=== PATIENT | male | born 1950 | race Caucasian/White ===

== ENCOUNTER 2023-03-30 13:27 | Observation (INO) ==
--- NOTE | 2023-03-30 15:00 | Emergency Department Note ---
Impression & Plan Cervical spinal stenosis, Lumbar spinal stenosis, Smokeless tobacco use, Hypertension ED Provider Note NAME: STEPHEN WELCH AGE: 72 SEX: M : 1950 ARRIVES VIA: Walk-In INFORMANT: [Patient][, ] ED PROVIDER(S): [David Garcia MD] CHIEF COMPLAINT: Weakness MEDICAL DECISION MAKING: Patient presents due to concern for weakness in his right upper extremity as well as his bilateral lower extremities. IV was established and blood work was obtained. MRI of the cervical spine and lumbar spine were ordered. Patient's blood work shows a normal white count H&H and platelet count. The patient's kidney function is grossly unremarkable. I did inform the family of the findings. Patient pending the results of his MRI. 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 Moderate central canal stenosis at C3-C4 with severe multilevel level neuroforaminal narrowing. The patient's lumbar MRI shows degenerative marrow at L1 L4 and L5 with a chronic L5 pars defect and a millimeter anterior listhesis. Mild to moderate central canal stenosis at L2-L3. I did speak with on-call spinal specialist Dr. Castelan stated that given the location it would be unlikely that he would operate. That being said the patient has had chronic symptoms which have gotten progressively worse and are not an acute change for the patient. Dr. Castelan stated that he was seen as a consult in the morning and they will discuss further management and care. I did speak the on-call hospital service Dr. Hanson. IV dexamethasone 10 mg ordered. Patient was admitted to the medicine service by Dr. Hanson. OBS NOTE The patient was placed in observation status at 1500 for ambulatory dysfunction, chronic right upper extremity weakness. During the time in observation, the patient was frequently reassessed and received [treatments/testing]. On Final reassessment the patient patient with ambulatory dysfunction chronic right upper extremity weakness with severe central canal stenosis of the cervical spine and moderate canal stenosis of the cervical and lumbar spine and the patient will be admitted at this time. A total observation time of 7 hours. Prior /Outside records reviewed: [none] Differential diagnosis: Cervical spine stenosis, radiculopathy, infection, dehydration, metabolic abnormality, hypo/hyperglycemia, electrolyte disturbance, anemia, as well as others were considered pathologies. Diagnostics, as interpreted by me: ECG: [none] Cardiac monitoring: An order was placed for continuous cardiac monitoring. The monitor shows a rate of 77 with sinus rhythm. Patient was placed on pulse oximetry Medical decision rules: None Imaging studies: See below HPI: Patient presents due to concern for increasing difficulty with ambula tion. The patient states that he has had some chronic neck pain since last year and had been going to the chiropractor but without significant improvement in symptoms. The patient states that he was shoveling some call in January and had a fall. [facility] of the [facility] spine and an MRI of the brain and these were reportedly unremarkable. The patient had followed up with [place] at [facility] noticed that the patient may have some compression and was referred here for further evaluation treatment and possible MRI. The patient does complain of weakness of his right upper extremity which has been chronic in nature but acutely worse since his f all. Patient did have worsening ambulatory dysfunction today to where his right leg gave out as well. Patient denies any chest pains or shortness of breath. The patient does chew tobacco but uses alcohol sparingly. Patient denies any head strike or LOC. Patient does not take blood thinners. Patient denies any bilateral incontinence. The patient has had numbness in the bilateral lower extremities. He does have occasional rating pain to his legs but does not complain of significant back pain. No specific saddle anesthesia. Patient states he has been constipated but knows when he needs to use the bathroom. PAST MEDICAL HISTORY: See Below PAST SURGICAL HISTORY: See Below SOCIAL HISTORY: See Below HOME MEDICATIONS: See Below ALLERGIES: See Below VITALS: See Below PHYSICAL EXAMINATION: GENERAL: NAD, wearing a mask, non-toxic. EYE EXAM: Normal conjunctiva. PERRL, no anisocoria and EOM's grossly intact w/o pain. NECK: Supple, no nuchal rigidity, no adenopathy, non-tender. No signs of meningismus. FROM of the neck with good chin to chest and neck extension. No stridor. LUNGS: Clear to auscultation. Normal chest wall mechanics. HEART: NSR, no MRG. ABDOMEN: Abdomen soft, non-tender, no masses, no rebound or guarding. BACK: No CVA TTP. SKIN: No rashes and no bruising. UPPER EXTREMITIES: Upper extremities are grossly normal. LOWER EXTREMITIES: Grossly normal, no edema. NEURO EXAM: A&O x3, cranial nerves II-XII grossly intact, normal speech, moves all 4 extremities. Past Med/Surg History Medical History H/O: HTN (hypertension) Surgical History No pertinent past surgical history Social History Smoking Status: Never smoker Tobacco Type: Smokeless Tobacco (Dip or Chew) Hx Alcohol Use: Yes Hx Substance Use: No current occupational status: retired Feels Safe at Home: Yes Allergies Allergies Allergy/AdvReac Type Severity Reaction Status Date / Time No Known Allergies Allergy Unverified 03/30/23 17:31 Home Meds Home Medications Medication Instructions Recorded Confirmed amlodipine 5 mg tablet 5 mg PO DAILY 03/30/23 03/30/23 aspirin 81 mg tablet,delayed 81 mg PO DAILY 03/30/23 03/30/23 release carvedilol 25 mg tablet 25 mg PO BID 03/30/23 03/30/23 cholecalciferol (vitamin D3) 125 125 mcg PO DAILY 03/30/23 03/30/23 mcg (5,000 unit) tablet (Vitamin D3) lisinopril 20 mg tablet 40 mg PO DAILY 03/30/23 03/30/23 multivitamin 1 tab PO DAILY 03/30/23 03/30/23 omeprazole 40 mg capsule,delayed 40 mg PO DAILY 03/30/23 03/30/23 release Results & Data (ED) Vital Signs Vital Signs - 24 hr 03/30/23 13:31 03/30/23 15:00 03/30/23 20:31 Temperature 36.4 C L Temperature Source Temporal Artery Scan Pulse Rate 90 83 Pulse Rate [Finger] 75 Pulse Rate from SpO2 Sensor Respiratory Rate 18 16 Respiratory Effort / Characteristics Non-Labored Non-Labored Spontaneous Respiratory Depth Normal Normal Respiratory Pattern Regular Blood Pressure 173/104 H Blood Pressure Mean 127 Pulse Oximetry 98 99 Oxygen Delivery Method Room Air Room Air Sepsis Recent Fever Within 48 Hours No Sepsis New/Unexplained Change in Mental Status No Sepsis Action Taken by Nursing No Action Required 03/30/23 19:53 03/30/23 20:00 03/30/23 20:30 Temperature Temperature Source Pulse Rate 77 76 83 Pulse Rate [Finger] Pulse Rate from SpO2 Sensor 77 76 81 Respiratory Rate 17 19 15 Respiratory Effort / Characteristics Respiratory Depth Respiratory Pattern Blood Pressure 167/91 H 145/91 H 126/103 H Blood Pressure Mean 116 109 110 Pulse Oximetry 95 94 95 Oxygen Delivery Method Room Air Room Air Room Air Sepsis Recent Fever Within 48 Hours Sepsis New/Unexplained Change in Mental Status Sepsis Action Taken by Nursing 03/30/23 21:00 03/30/23 21:01 Temperature Temperature Source Pulse Rate 84 85 Pulse Rate [Finger] Pulse Rate from SpO2 Sensor 82 94 H Respiratory Rate 18 22 Respiratory Effort / Characteristics Respiratory Depth Respiratory Pattern Blood Pressure 150/98 H Blood Pressure Mean 115 Pulse Oximetry 95 92 Oxygen Delivery Method Room Air Sepsis Recent Fever Within 48 Hours Sepsis New/Unexplained Change in Mental Status Sepsis Action Taken by Assisted Medications Current Medication List: was personally reviewed by me Laboratory Data Attestation: I reviewed the patient's lab results. 03/30/23 13:54 03/30/23 13:54 Lab Results 03/30/23 03/30/23 03/30/23 Range/Units 13:54 13:54 15:55 WBC Cancelled 8.32 RBC Cancelled 5.28 Hgb Cancelled 16.3 Hct Cancelled 45.7 MCV Cancelled 86.6 MCH Cancelled 30.9 MCHC Cancelled 35.7 RDW Std Deviation Cancelled 37.6 RDW Coeff of Rigo Cancelled 11.8 Plt Count Cancelled 209 MPV Cancelled 10.4 Immature Gran % (Auto) Cancelled 0.2 Neut % (Auto) Cancelled 64.4 Lymph % (Auto) Cancelled 22.7 Banks % (Auto) Cancelled 10.5 Eos % (Auto) Cancelled 1.7 Baso % (Auto) Cancelled 0.5 Neut # (Auto) Cancelled 5.36 Lymph # (Auto) Cancelled 1.89 Banks # (Auto) Cancelled 0.87 H Eos # (Auto) Cancelled 0.14 Baso # (Auto) Cancelled 0.04 Immature Gran # (Auto) Cancelled 0.02 Absolute Nucleated RBC Cancelled Nucleated RBC % (auto) Cancelled Neutrophils % (Manual) Cancelled Band Neutrophils % Cancelled Lymphocytes % (Manual) Cancelled Prolymphocyte % Cancelled Reactive Lymphs % (Man) Cancelled Monocytes % (Manual) Cancelled Eosinophils % (Manual) Cancelled Basophils % (Manual) Cancelled Metamyelocytes % (Man) Cancelled Myelocytes % (Man) Cancelled Promyelocytes % (Man) Cancelled Blast Cells % (Manual) Cancelled Plasma Cell % (Manual) Cancelled Other Cells % Cancelled Nucleated RBC % Cancelled Neutrophils # (Manual) Cancelled Band Neutrophils # Cancelled Total Absolute Neuts Cancelled Lymphocytes # (Manual) Cancelled Prolymphocyte # Cancelled Reactive Lymphs # Cancelled Total Abs Lymphocytes Cancelled Monocytes # (Manual) Cancelled Eosinophils # (Manual) Cancelled Basophils # (Manual) Cancelled Metamyelocytes # (Man) Cancelled Myelocytes # (Manual) Cancelled Promyelocytes # (Man) Cancelled Blast Cells # (Man) Cancelled Plasma Cell # (Manual) Cancelled Other Cells # Cancelled Nucleated RBCs # (Man) Cancelled Hypersegmented Neuts Cancelled Hyposegmented Neuts Cancelled Hypogranular Neuts Cancelled Large Granular Lymphs Cancelled # Lrg Granular Lymphs Cancelled Hairy Cells Cancelled Smudge Cells Cancelled Toxic Granulation Cancelled Toxic Vacuolation Cancelled Dohle Bodies Cancelled Jaki Rods Cancelled Platelet Estimate Cancelled Hypogranular Platelets Cancelled Giant Platelets Cancelled Platelet Satelliting Cancelled RBC Morphology Cancelled Polychromasia Cancelled Hypochromasia Cancelled Poikilocytosis Cancelled Basophilic Stippling Cancelled Anisocytosis Cancelled Microcytosis Cancelled Macrocytosis Cancelled Spherocytes Cancelled Pappenheimer Bodies Cancelled Sickle Cells Cancelled Target Cells Cancelled Tear Drop Cells Cancelled Ovalocytes Cancelled Stomatocytes Cancelled [place] Bodies Cancelled Echinocytes Cancelled Acanthocytes (Spur) Cancelled Rouleaux Cancelled RBC Agglutinates Cancelled Schistocytes Cancelled Sezary Cell Cancelled Sodium 139 (136-145) mmol/L Potassium 3.7 (3.5-5.1) mmol/L Chloride 103 (98-107) mmol/L Carbon Dioxide 28 (21-32) mmol/L Anion Gap 8 (3-11) BUN 10 (6-23) mg/dl Creatinine 0.52 L (0.6-1.4) mg/dl Est Cr Clr Drug Dosing Not Reportable Est GFR ( Amer) 122.6 ml/min Est GFR (Non-Af Amer) 105.8 ml/min BUN/Creatinine Ratio 19.2 (10-20) Glucose 109 H (70-99(Fasting)) mg/dl Calcium 9.5 (8.6-10.3) mg/dl Total Bilirubin 0.7 (0.2-1.0) mg/dl AST 15 (13-39) U/L ALT 12 (7-52) U/L Alkaline Phosphatase 54 (34-104) U/L Total Protein 7.0 (6.0-8.3) gm/dl Albumin 4.2 (3.4-5.0) gm/dl Globulin 2.8 (2.5-4.0) gm/dl Albumin/Globulin Ratio 1.5 (0.9-2) Urine Color Urine Appearance (Clear) Urine pH (4.5-7.5) Ur Specific [place] (1.000-1.030) Urine Protein (Negative) Urine Glucose (UA) (Negative) Urine Ketones (Negative) Urine Blood (Negative) Urine Nitrite (Negative) Urine Bilirubin (Negative) Urine Urobilinogen (Negative) Ur Leukocyte Esterase (Negative) SARS-CoV-2, RNA, NAAT (NEGATIVE) Blood Parasites ID Cancelled 03/30/23 03/30/23 Range/Units 19:54 20:07 WBC RBC Hgb Hct MCV MCH MCHC RDW Std Deviation RDW Coeff of Rigo Plt Count MPV Immature Gran % (Auto) Neut % (Auto) Lymph % (Auto) Banks % (Auto) Eos % (Auto) Baso % (Auto) Neut # (Auto) Lymph # (Auto) Banks # (Auto) Eos # (Auto) Baso # (Auto) Immature Gran # (Auto) Absolute Nucleated RBC Nucleated RBC % (auto) Neutrophils % (Manual) Band Neutrophils % Lymphocytes % (Manual) Prolymphocyte % Reactive Lymphs % (Man) Monocytes % (Manual) Eosinophils % (Manual) Basophils % (Manual) Metamyelocytes % (Man) Myelocytes % (Man) Promyelocytes % (Man) Blast Cells % (Manual) Plasma Cell % (Manual) Other Cells % Nucleated RBC % Neutrophils # (Manual) Band Neutrophils # Total Absolute Neuts Lymphocytes # (Manual) Prolymphocyte # Reactive Lymphs # Total Abs Lymphocytes Monocytes # (Manual) Eosinophils # (Manual) Basophils # (Manual) Metamyelocytes # (Man) Myelocytes # (Manual) Promyelocytes # (Man) Blast Cells # (Man) Plasma Cell # (Manual) Other Cells # Nucleated RBCs # (Man) Hypersegmented Neuts Hyposegmented Neuts Hypogranular Neuts Large Granular Lymphs # Lrg Granular Lymphs Hairy Cells Smudge Cells Toxic Granulation Toxic Vacuolation Dohle Bodies Jaki Rods Platelet Estimate Hypogranular Platelets Giant Platelets Platelet Satelliting RBC Morphology Polychromasia Hypochromasia Poikilocytosis Basophilic Stippling Anisocytosis Microcytosis Macrocytosis Spherocytes Pappenheimer Bodies Sickle Cells Target Cells Tear Drop Cells Ovalocytes Stomatocytes [place] Bodies Echinocytes Acanthocytes (Spur) Rouleaux RBC Agglutinates Schistocytes Sezary Cell Sodium (136-145) mmol/L Potassium (3.5-5.1) mmol/L Chloride (98-107) mmol/L Carbon Dioxide (21-32) mmol/L Anion Gap (3-11) BUN (6-23) mg/dl Creatinine (0.6-1.4) mg/dl Est Cr Clr Drug Dosing Est GFR ( Amer) ml/min Est GFR (Non-Af Amer) ml/min BUN/Creatinine Ratio (10-20) Glucose (70-99(Fasting)) mg/dl Calcium (8.6-10.3) mg/dl Total Bilirubin (0.2-1.0) mg/dl AST (13-39) U/L ALT (7-52) U/L Alkaline Phosphatase (34-104) U/L Total Protein (6.0-8.3) gm/dl Albumin (3.4-5.0) gm/dl Globulin (2.5-4.0) gm/dl Albumin/Globulin Ratio (0.9-2) Urine Color Dark Yellow Urine Appearance Clear (Clear) Urine pH 7.0 (4.5-7.5) Ur Specific [place] 1.016 (1.000-1.030) Urine Protein Negative (Negative) Urine Glucose (UA) Negative (Negative) Urine Ketones Negative (Negative) Urine Blood Negative (Negative) Urine Nitrite Negative (Negative) Urine Bilirubin Negative (Negative) Urine Urobilinogen Negative (Negative) Ur Leukocyte Esterase Negative (Negative) SARS-CoV-2, RNA, NAAT NEGATIVE (NEGATIVE) Blood Parasites ID Administered Medications Discontinued Medications Morphine Sulfate (Morphine Sulfate 4 Mg/Ml 1 Ml Carp\Vial) 4 mg IV NOW STA Stop: 03/30/23 17:33 Last Admin: 03/30/23 17:41 Dose: 4 mg Documented By: ALESSIA Imaging Data Radiologist's Impression: Cervical Spine MRI 03/30/23 15:42 MR cervical spine wo con HISTORY: 72 years-old Male RUE weakness, b/l LE amb dysfunction, necback pain acute neck pain with right upper extremity weakness COMPARISON: None TECHNIQUE: Multiplanar multisequence MRI of the cervical spine was obtained without the use of IV contrast. FINDINGS: Motion degraded exam. No gross abnormality identified on the chief accountant localizer images. The imaged posterior fossa structures are unremarkable. Normal signal of the brainstem. 1.1 cm C6 vertebral body hemangioma. No acute fracture, subluxation, endplate erosion, significant marrow or soft tissue edema. No marrow replacing process. Degenerative pannus circumferentially surrounds the dens. This results in narrowing at the craniocervical junction with AP dimension measuring 6 mm. There is a 9 mm focus of increased T2/STIR signal within the central cervical spinal cord at this level. Otherwise normal appearance of the cervical and imaged upper thoracic spinal cord. C2-C3: Severe intervertebral disc space narrowing. Circumferential disc osteophyte complex with advanced facet arthrosis. The central canal is patent. Severe bilateral foraminal narrowing, left greater than right. C3-C4: Severe intervertebral disc space narrowing. Prominent spondylitic spurring with circumferential disc osteophyte complex and large central disc protrusion measuring 1.1 x 0.6 cm in transverse and AP dimensions. Advanced facet arthrosis. AP dimension of the thecal sac measures 5.5 mm. Moderate central canal stenosis with severe bilateral foraminal narrowing. C4-C5: Severe intervertebral disc space narrowing with circumferential disc osteophyte complex and moderate facet arthrosis. Mild central canal stenosis with AP dimension of the thecal sac measuring 8 mm. Severe bilateral foraminal narrowing. C5-C6: Severe intervertebral disc space narrowing with spondylitic spurring and small circumferential disc osteophyte complex. Moderate facet arthrosis. The central canal is patent. Moderate with severe left foraminal narrowing. C6-C7. Severe intervertebral disc space narrowing noted under partial bony fusion. Spondylitic spurring with moderate facet arthrosis. The central canal is patent. Moderate to severe right with severe left neural foraminal narrowing. C7-T1: Moderate to advanced facet arthrosis. The central canal and neuroforamen are generally patent. IMPRESSION: 1. No acute fracture, subluxation or significant bone marrow edema. 2. 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 3. Moderate central canal stenosis at C3-C4. 4. Severe multilevel neural foraminal narrowing. ACT 112: Negative or not required by law. The above report was generated using voice recognition software. It may contain grammatical, syntax or spelling errors. Electronically signed by: Camilo Renae M.D. 03/30/2023 8:59 PM Lumbar Spine MRI 03/30/23 15:42 MR lumbar spine wo con CLINICAL HISTORY: 72 years-old Male with RUE weakness, b/l LE amb dysfunction, necback pain. Chronic low back pain COMPARISON: None TECHNIQUE: Multiplanar, multi sequence MRI of the lumbar spine was performed without intravenous contrast. FINDINGS: Motion degraded exam. Cerner Analyst localizer images demonstrate no gross extraspinal abnormality. Mild lumbar levoscoliosis. No acute fracture, subluxation or erosion identified. Mild to moderate marrow edema noted at L1, L4 and L5 8 mm anterolisthesis L5 on S1 with chronic bilateral L5 pars defects. Conus medullaris terminates at the L1 level. Normal signal within the imaged thoracic spinal cord. T12-L1: No central canal or neural foraminal stenosis. L1-L2: Mild to moderate vertebral disc space narrowing. Spondylitic spurring with small circumferential annular disc bulge. Ligamentum flavum thickening with severe facet arthrosis. Mild right neural foraminal narrowing. The central canal and left neural foramen are patent. L2-L3: Mild intervertebral disc space narrowing. Spondylotic spurring with right paracentral/right lateral recess disc osteophyte complex 1.2 cm transversely. There is resultant moderate narrowing of the right lateral recess. Severe facet arthrosis with trace right facet effusion. AP dimension of the thecal sac measures 8 mm. Mild to moderate central canal stenosis with mild left and [id number] right neural foraminal narrowing. L3-L4: Severe intervertebral disc space narrowing. Spondylitic spurring with small circumferential disc osteophyte complex. Ligamentum flavum thickening with advanced facet arthrosis. Mild central canal stenosis, AP dimension of the thecal sac measuring 9 mm. Moderate to severe left with mild/moderate right neural foraminal narrowing. L4-L5: Severe intervertebral disc space narrowing. Circumferential disc osteophyte complex. Ligamentum thickening with advanced facet arthrosis. Central canal is patent. There is at least mild narrowing of the lateral recesses. Severe bilateral foraminal narrowing. L5-S1: Grade 1 anterolisthesis. Moderate intervertebral disc space narrowing with spondylitic spurring and circumferential annular disc bulge with posterior disc space uncovering. Advanced facet arthrosis. Central canal is patent. Moderate right with severe left neural foraminal narrowing. IMPRESSION: 1. Motion degraded exam without acute fracture. 2. Likely degenerative marrow edema at L1, L4 and L5. 3. Chronic L5 pars defects with 8 mm anterolisthesis. 4. Mild to moderate central canal stenosis at L2-L3 with multilevel neural foraminal narrowing as above. ACT 112: Negative or not required by law. The above report was generated using voice recognition software. It may contain grammatical, syntax or spelling errors. Electronically signed by: Camilo Renae M.D. 03/30/2023 9:07 PM Discharge Plan Visit Data Chief Complaint: Fall Stated Complaint: FELL 02/01,HEAD PAIN,NO FEELING IN ARMS,DOC REF ED Provider: David Garcia Discharge Problem: Cervical spinal stenosis, Lumbar spinal stenosis, Smokeless tobacco use, Hypertension Patient Disposition: Admitted As Inpatient Forms Stand Alone Forms: My [facility] Prescriptions Prescriptions: No Action multivitamin Tablet 1 tab PO DAILY carvedilol 25 mg tablet 25 mg PO BID lisinopril 20 mg tablet 40 mg PO DAILY amlodipine 5 mg tablet 5 mg PO DAILY omeprazole 40 mg capsule,delayed release(DR/EC) 40 mg PO DAILY aspirin 81 mg Tablet,Delayed Release (Dr/Ec) 81 mg PO DAILY cholecalciferol (vitamin D3) [Vitamin D3] 125 mcg (5,000 unit) Tablet 125 mcg PO DAILY Referrals Referrals: PCP,NO [Physician] -
[2023-03-30 15:24] LABS: Albumin Level 4.2 gm/dl (3.4-5.0); Anion Gap 8 (3-11); Bilirubin,Total 0.7 mg/dl (0.2-1.0); Calcium 9.5 mg/dl (8.6-10.3); Carbon Dioxide 28 mmol/L (21-32); Chloride 103 mmol/L (98-107); Potassium 3.7 mmol/L (3.5-5.1); Sodium 139 mmol/L (136-145)
[2023-03-30 15:30] LABS: Alanine Aminotransferase 12 U/L (7-52); Albumin Globulin Ratio 1.5 (0.9-2); Alkaline Phosphatase 54 U/L (34-104); Aspartate Aminotransferase 15 U/L (13-39); BUN Creatinine Ratio 19.2 (10-20); Blood Urea Nitrogen 10 mg/dl (6-23); Est GFR (African American) 122.6 ml/min; Est GFR (Non-African American) 105.8 ml/min; Globulin 2.8 gm/dl (2.5-4.0); Glucose 109 mg/dl (70-99(Fasting))
[2023-03-30 16:11] LABS: Basophils # (auto) 0.04 K/uL (0-0.2); Basophils % (auto) 0.5 %; Eosinophils # (auto) 0.14 K/uL (0-0.50); Eosinophils % (auto) 1.7 %; Hematocrit (blood only) 45.7 % (42.0-52.0); Hemoglobin 16.3 g/dl (14.0-18.0); Immature Granulocytes # (auto) 0.02 K/uL (0.01-0.20); Immature Granulocytes % (auto) 0.2 %; Lymphocytes # (auto) 1.89 K/uL (1.2-3.4); Lymphocytes % (auto) 22.7 %; Mean Corpuscular Hemoglobin 30.9 pg (25.0-34.0); Mean Corpuscular Hgb Conc 35.7 g/dL (32.0-36.0); Mean Corpuscular Volume 86.6 fL (80.0-100.0); Mean Platelet Volume 10.4 fL (9.4-12.4); Monocytes # (auto) 0.87 K/uL (0.11-0.59); Monocytes % (auto) 10.5 %; Neutrophils # (auto) 5.36 K/uL (1.40-6.50); Neutrophils % (auto) 64.4 %; Platelet Count 209 K/uL (130-400); RDW Coefficient of Variation 11.8 % (11.5-14.5); RDW Standard Deviation 37.6 fL (36.4-46.3); Red Blood Count 5.28 M/uL (4.70-6.10); White Blood Count 8.32 K/ul (4.8-10.8)
[2023-03-30] MEDS ORDERED: MoRPHine SULFATE 4 MG/ML 1 ML CARP\\VIAL IV STA (17:32)
[2023-03-30 20:06] LABS: Appearance Urine Clear (Clear); Bilirubin Urine Negative (Negative); Blood Urine Negative (Negative); Color Urine Dark Yellow; Glucose Urine UA Negative (Negative); Ketones Urine Negative (Negative); Leukocyte Esterase Urine Negative (Negative); Nitrite Urine Negative (Negative); Protein Urine Negative (Negative); Specific Gravity Urine 1.016 (1.000-1.030); Urobilinogen Urine Negative (Negative)
--- NOTE | 2023-03-30 21:01 | Magnetic Resonance Report ---
MR cervical spine wo con HISTORY: 72 years-old Male RUE weakness, b/l LE amb dysfunction, necback pain acute neck pain with r ight upper extremity weakness COMPARISON: None TECHNIQUE: Multiplanar multisequence MRI of the cervical spine was obtained without the use of IV con trast. FINDINGS: Motion degraded exam. No gross abnormality identified on the alloy weigher localizer images. The imaged poste rior fossa structures are unremarkable. Normal signal of the brainstem. 1.1 cm C6 vertebral body sangita ngioma. No acute fracture, subluxation, endplate erosion, significant marrow or soft tissue edema. No marrow replacing process. Degenerative pannus circumferentially surrounds the dens. This results in narrowing at the craniocervical junction with AP dimension measuring 6 mm. There is a 9 mm focus of i ncreased T2/STIR signal within the central cervical spinal cord at this level. Otherwise normal appea jaime of the cervical and imaged upper thoracic spinal cord. C2-C3: Severe intervertebral disc space narrowing. Circumferential disc osteophyte complex with advan hien facet arthrosis. The central canal is patent. Severe bilateral foraminal narrowing, left greater than right. C3-C4: Severe intervertebral disc space narrowing. Prominent spondylitic spurring with circumferentia l disc osteophyte complex and large central disc protrusion measuring 1.1 x 0.6 cm in transverse and AP dimensions. Advanced facet arthrosis. AP dimension of the thecal sac measures 5.5 mm. Moderate geni tral canal stenosis with severe bilateral foraminal narrowing. C4-C5: Severe intervertebral disc space narrowing with circumferential disc osteophyte complex and mo derate facet arthrosis. Mild central canal stenosis with AP dimension of the thecal sac measuring 8 m m. Severe bilateral foraminal narrowing. C5-C6: Severe intervertebral disc space narrowing with spondylitic spurring and small circumferential disc osteophyte complex. Moderate facet arthrosis. The central canal is patent. Moderate with severe left foraminal narrowing. C6-C7. Severe intervertebral disc space narrowing noted under partial bony fusion. Spondylitic spurri ng with moderate facet arthrosis. The central canal is patent. Moderate to severe right with severe l eft neural foraminal narrowing. C7-T1: Moderate to advanced facet arthrosis. The central canal and neuroforamen are generally patent. IMPRESSION: 1. No acute fracture, subluxation or significant bone marrow edema. 2. 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 3. Moderate central canal stenosis at C3-C4. 4. Severe multilevel neural foraminal narrowing. ACT 112: Negative or not required by law. The above report was generated using voice recognition software. It may contain grammatical, syntax o r spelling errors. Electronically signed by: Camilo Renae M.D. 03/30/2023 8:59 PM
--- NOTE | 2023-03-30 21:09 | Magnetic Resonance Report ---
MR lumbar spine wo con CLINICAL HISTORY: 72 years-old Male with RUE weakness, b/l LE amb dysfunction, necback pain. Chronic low back pain COMPARISON: None TECHNIQUE: Multiplanar, multi sequence MRI of the lumbar spine was performed without intravenous cont rast. FINDINGS: Motion degraded exam. Metal Grinder localizer images demonstrate no gross extraspinal abnormality. Mild lumba r levoscoliosis. No acute fracture, subluxation or erosion identified. Mild to moderate marrow edema noted at L1, L4 and L5 8 mm anterolisthesis L5 on S1 with chronic bilateral L5 pars defects. Conus me dullaris terminates at the L1 level. Normal signal within the imaged thoracic spinal cord. T12-L1: No central canal or neural foraminal stenosis. L1-L2: Mild to moderate vertebral disc space narrowing. Spondylitic spurring with small circumferent ial annular disc bulge. Ligamentum flavum thickening with severe facet arthrosis. Mild right neural f oraminal narrowing. The central canal and left neural foramen are patent. L2-L3: Mild intervertebral disc space narrowing. Spondylotic spurring with right paracentral/right l ateral recess disc osteophyte complex 1.2 cm transversely. There is resultant moderate narrowing of t he right lateral recess. Severe facet arthrosis with trace right facet effusion. AP dimension of the thecal sac measures 8 mm. Mild to moderate central canal stenosis with mild left and ghad-[id number] right neural foraminal narrowing. L3-L4: Severe intervertebral disc space narrowing. Spondylitic spurring with small circumferential d isc osteophyte complex. Ligamentum flavum thickening with advanced facet arthrosis. Mild central dennys l stenosis, AP dimension of the thecal sac measuring 9 mm. Moderate to severe left with mild/moderate right neural foraminal narrowing. L4-L5: Severe intervertebral disc space narrowing. Circumferential disc osteophyte complex. Ligament um thickening with advanced facet arthrosis. Central canal is patent. There is at least mild narrowin g of the lateral recesses. Severe bilateral foraminal narrowing. L5-S1: Grade 1 anterolisthesis. Moderate intervertebral disc space narrowing with spondylitic spurri ng and circumferential annular disc bulge with posterior disc space uncovering. Advanced facet arthro sis. Central canal is patent. Moderate right with severe left neural foraminal narrowing. IMPRESSION: 1. Motion degraded exam without acute fracture. 2. Likely degenerative marrow edema at L1, L4 and L5. 3. Chronic L5 pars defects with 8 mm anterolisthesis. 4. Mild to moderate central canal stenosis at L2-L3 with multilevel neural foraminal narrowing as abo ve. ACT 112: Negative or not required by law. The above report was generated using voice recognition software. It may contain grammatical, syntax o r spelling errors. Electronically signed by: Camilo Renae M.D. 03/30/2023 9:07 PM
[2023-03-30] MEDS ORDERED: dexAMETHasone**PF** 10 MG/ML VIAL IV ONE (22:14)
[2023-03-30] MEDS ORDERED: carvediloL 25 MG TAB PO ONE (22:23)
[2023-03-30] MEDS ORDERED: HYDROCODONE/ACETAMOPHEN 5/325MG TAB PO PRN (22:35)
[2023-03-31] MEDS ORDERED: ACETAMINOPHEN 325 MG TAB PO PRN (01:39)
[2023-03-31] MEDS ORDERED: ONDANSETRON INJ 2 MG/ML 2 ML VIAL IV PRN (01:39)
[2023-03-31] MEDS ORDERED: HYDROmorphone INJ 0.5 MG/0.5 ML SYR IV PRN (01:39)
[2023-03-31] MEDS: NSS + 20MEQ KCL 20 MEQ/1,000 ML BAG IV SCH ×2 (02:13→15:00)
--- NOTE | 2023-03-31 04:36 | History & Physical Report ---
Date of Service March 31, 2023 The patient was seen and examined on 03/30/23 Assessment & Plan (1) Cervical spinal stenosis: (2) Lumbar spinal stenosis: (3) Smokeless tobacco use: (4) Hypertension: (5) GERD (gastroesophageal reflux disease): Plan Cervical spine and lumbar spine stenosis- Cervical symptoms are especially prominent in C1-C2 distribution, but also extend throughout MRIs performed of cervical and lumbar spine Thoracic spine likely has similar structural issues, however, was not performed this evening due to significant discomfort, and may be imaged in the a.m. ED discussion with orthopedic spine surgery Dr. Castelan We will give dexamethasone 10 mg IV in the ED now, and then 6 mg IV every 8 hours Acetaminophen 650 mg by mouth every 6 hours as needed for mild pain or fever [place] 5/325 1 every 6 hours as needed for moderate pain Dilaudid 0.25 mg IV every 3 hours as needed for severe pain NSS + KCl 20 mEq at 80 mils per hour Consult orthopedic spine surgery Dr. Castelan Hypertension-hold aspirin Continue carvedilol 25 mg p.o. twice daily, amlodipine 5 mg p.o. daily, and lisinopril 40 mg p.o. daily. GERD- Change omeprazole to pantoprazole per formulary interchange Admission and Anticipated Discharge Date Admission Date: March 30, 2023 History of Present Illness Chief Complaint: The patient presents to the emergency department at the urgency of his family due to worsening weakness of right greater than left upper extremity and bilateral lower extremities. His most significant and concerning symptoms for him and his family, are severe discomfort extending from his neck up to the back of his head. Primary Care Provider: Dion Gonzalez PA-C The patient is a 72-year-old male with a past medical history including hypertension, vitamin D deficiency and GERD. 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 He has had issues over the years with neck pain and lower back pain, and in the more recent years has developed progressive early worsening weakness and decreased range of motion of bilateral upper extremities, and progressive weakness of bilateral lower extremities. He also notes decreased sensation pointing to his perineal area, but has not had loss of bowel or bladder control. His family reports that a few months ago he fell backwards and injured his head, and since that time his symptoms of weakness seem to have worsened. Allergies Allergy/AdvReac Type Severity Reaction Status Date / Time No Known Allergies Allergy Unverified 03/30/23 17:31 Home Medications Medication Instructions Recorded Confirmed Type amlodipine 5 mg tablet 5 mg PO DAILY 03/30/23 03/30/23 History aspirin 81 mg tablet,delayed 81 mg PO DAILY 03/30/23 03/30/23 History release carvedilol 25 mg tablet 25 mg PO BID 03/30/23 03/30/23 History cholecalciferol (vitamin D3) 125 125 mcg PO DAILY 03/30/23 03/30/23 History mcg (5,000 unit) tablet (Vitamin D3) lisinopril 20 mg tablet 40 mg PO DAILY 03/30/23 03/30/23 History multivitamin 1 tab PO DAILY 03/30/23 03/30/23 History omeprazole 40 mg capsule,delayed 40 mg PO DAILY 03/30/23 03/30/23 History release Past Med/Surg History Medical History GERD (gastroesophageal reflux disease) Hypertension Smokeless tobacco use Surgical History No pertinent past surgical history Social History Smoking Status: Current some day smoker Tobacco Type: Smokeless Tobacco (Dip or Chew) Do You Dip or Chew Tobacco: Yes; Hx Alcohol Use: Yes Hx Substance Use: No Preferred Language: Polish [employer] Team Member Required: No Beliefs That Will Affect Care: None Current Living Situation: Spouse current occupational status: retired Feels Safe at Home: Yes Assistive Devices: Glasses Review of Systems Review of Systems: The patient denies chest pain, palpitations, shortness of breath, dyspnea on exertion, cough, lower extremity swelling, sore throat, fevers, chills, sweats, nausea, vomiting, diarrhea , constipation, abdominal pain, pelvic pain, blood in urine or stool, dysuria, urinary frequency or urgency, lightheadedness, dizziness, headache, memory loss, loss of consciousness, rash, abnormal bruising or bleeding,or night sweats. The review of systems is otherwise negative other than for that already noted above, and at least 10 systems have been reviewed. Physical Exam Physical Exam: The patient is awake, alert and oriented 3, well developed and well nourished, normocephalic and atraumatic, lying in bed and in no acute distress. HEENT--PERRL, EOMI, mucous membranes and oropharynx dry. Neck--supple. No JVD. No bruits. Thyroid normal, trachea midline, no adenopathy. Heart--normal S1 and S2. No murmurs, rubs or gallops. Lungs--clear bilaterally, no respiratory distress, no accessory muscle use. Abdomen--normal bowel sounds and soft. Nontender. Nondistended, no hernias or masses, no organomegaly. Extremities--no cyanosis or clubbing. No edema. There are good distal pulses b/l. Dermatologic--normal skin turgor, normal color, no abnormal lymph nodes, no rash. Neurologic--cranial nerves II through XII grossly intact. Rheumatologic--decreased range of motion and generalized weakness of all extremities Psychiatric--normal affect. Results & Data Results & Data Vital Signs (Past 12 Hours) Vital Signs Temp Pulse Pulse Resp BP BP Pulse Ox 03/31/23 04:06 36.3 C L 66 16 163/84 H 95 03/31/23 01:30 36.7 C 69 20 159/97 H 95 03/31/23 01:30 36.7 C 69 20 159/97 H 95 03/31/23 01:30 03/31/23 01:00 58 L 130/74 92 03/31/23 00:39 60 03/31/23 00:30 60 16 129/84 90 03/31/23 00:00 71 18 131/79 91 03/30/23 23:30 75 20 136/93 92 03/30/23 23:00 74 18 154/96 H 94 03/30/23 22:30 74 19 165/106 H 93 03/30/23 22:01 82 21 169/111 H 93 03/30/23 21:30 90 18 179/110 H 03/30/23 21:01 85 22 150/98 H 92 03/30/23 21:00 84 18 95 03/30/23 20:30 83 15 126/103 H 95 03/30/23 20:00 76 19 145/91 H 94 03/30/23 19:53 77 17 167/91 H 95 03/30/23 20:31 83 Pulse Ox O2 Del Method O2 Del Method O2 Flow Rate 03/31/23 04:06 Room Air 03/31/23 01:30 Room Air 03/31/23 01:30 Room Air 03/31/23 01:30 95 Room Air 03/31/23 01:00 Room Air 03/31/23 00:39 03/31/23 00:30 Nasal Cannula 2 03/31/23 00:00 Room Air 03/30/23 23:30 Room Air 03/30/23 23:00 Room Air 03/30/23 22:30 03/30/23 22:01 03/30/23 21:30 03/30/23 21:01 Room Air 03/30/23 21:00 03/30/23 20:30 Room Air 03/30/23 20:00 Room Air 03/30/23 19:53 Room Air 03/30/23 20:31 Laboratory Results Laboratory Results WBC 8.32 K/ul (4.8-10.8) 03/30/23 15:55 RBC 5.28 M/uL (4.70-6.10) 03/30/23 15:55 Hgb 16.3 g/dl (14.0-18.0) 03/30/23 15:55 Hct 45.7 % (42.0-52.0) 03/30/23 15:55 MCV 86.6 fL (80.0-100.0) 03/30/23 15:55 MCH 30.9 pg (25.0-34.0) 03/30/23 15:55 MCHC 35.7 g/dL (32.0-36.0) 03/30/23 15:55 RDW Std Deviation 37.6 fL (36.4-46.3) 03/30/23 15:55 RDW Coeff of [place]igo 11.8 % (11.5-14.5) 03/30/23 15:55 Plt Count 209 K/uL (130-400) 03/30/23 15:55 MPV 10.4 fL (9.4-12.4) 03/30/23 15:55 Immature Gran % (Auto) 0.2 % 03/30/23 15:55 Neut % (Auto) 64.4 % 03/30/23 15:55 Lymph % (Auto) 22.7 % 03/30/23 15:55 Amelia % (Auto) 10.5 % 03/30/23 15:55 Eos % (Auto) 1.7 % 03/30/23 15:55 Baso % (Auto) 0.5 % 03/30/23 15:55 Neut # (Auto) 5.36 K/uL (1.40-6.50) 03/30/23 15:55 Lymph # (Auto) 1.89 K/uL (1.2-3.4) 03/30/23 15:55 Amelia # (Auto) 0.87 K/uL (0.11-0.59) H 03/30/23 15:55 Eos # (Auto) 0.14 K/uL (0-0.50) 03/30/23 15:55 Baso # (Auto) 0.04 K/uL (0-0.2) 03/30/23 15:55 Immature Gran # (Auto) 0.02 K/uL (0.01-0.20) 03/30/23 15:55 Absolute Nucleated RBC Cancelled 03/30/23 13:54 Nucleated RBC % (auto) Cancelled 03/30/23 13:54 Neutrophils % (Manual) Cancelled 03/30/23 13:54 Band Neutrophils % Cancelled 03/30/23 13:54 Lymphocytes % (Manual) Cancelled 03/30/23 13:54 Prolymphocyte % Cancelled 03/30/23 13:54 Reactive Lymphs % (Man) Cancelled 03/30/23 13:54 Monocytes % (Manual) Cancelled 03/30/23 13:54 Eosinophils % (Manual) Cancelled 03/30/23 13:54 Basophils % (Manual) Cancelled 03/30/23 13:54 Metamyelocytes % (Man) Cancelled 03/30/23 13:54 Myelocytes % (Man) Cancelled 03/30/23 13:54 Promyelocytes % (Man) Cancelled 03/30/23 13:54 Blast Cells % (Manual) Cancelled 03/30/23 13:54 Plasma Cell % (Manual) Cancelled 03/30/23 13:54 Other Cells % Cancelled 03/30/23 13:54 Nucleated RBC % Cancelled 03/30/23 13:54 Neutrophils # (Manual) Cancelled 03/30/23 13:54 Band Neutrophils # Cancelled 03/30/23 13:54 Total Absolute Neuts Cancelled 03/30/23 13:54 Lymphocytes # (Manual) Cancelled 03/30/23 13:54 Prolymphocyte # Cancelled 03/30/23 13:54 Reactive Lymphs # Cancelled 03/30/23 13:54 Total Abs Lymphocytes Cancelled 03/30/23 13:54 Monocytes # (Manual) Cancelled 03/30/23 13:54 Eosinophils # (Manual) Cancelled 03/30/23 13:54 Basophils # (Manual) Cancelled 03/30/23 13:54 Metamyelocytes # (Man) Cancelled 03/30/23 13:54 Myelocytes # (Manual) Cancelled 03/30/23 13:54 Promyelocytes # (Man) Cancelled 03/30/23 13:54 Blast Cells # (Man) Cancelled 03/30/23 13:54 Plasma Cell # (Manual) Cancelled 03/30/23 13:54 Other Cells # Cancelled 03/30/23 13:54 Nucleated RBCs # (Man) Cancelled 03/30/23 13:54 Hypersegmented Neuts Cancelled 03/30/23 13:54 Hyposegmented Neuts Cancelled 03/30/23 13:54 Hypogranular Neuts Cancelled 03/30/23 13:54 Large Granular Lymphs Cancelled 03/30/23 13:54 # Lrg Granular Lymphs Cancelled 03/30/23 13:54 Hairy Cells Cancelled 03/30/23 13:54 Smudge Cells Cancelled 03/30/23 13:54 Toxic Granulation Cancelled 03/30/23 13:54 Toxic Vacuolation Cancelled 03/30/23 13:54 Dohle Bodies Cancelled 03/30/23 13:54 Jaki Rods Cancelled 03/30/23 13:54 Platelet Estimate Cancelled 03/30/23 13:54 Hypogranular Platelets Cancelled 03/30/23 13:54 Giant Platelets Cancelled 03/30/23 13:54 Platelet Satelliting Cancelled 03/30/23 13:54 RBC Morphology Cancelled 03/30/23 13:54 Polychromasia Cancelled 03/30/23 13:54 Hypochromasia Cancelled 03/30/23 13:54 Poikilocytosis Cancelled 03/30/23 13:54 Basophilic Stippling Cancelled 03/30/23 13:54 Anisocytosis Cancelled 03/30/23 13:54 Microcytosis Cancelled 03/30/23 13:54 Macrocytosis Cancelled 03/30/23 13:54 Spherocytes Cancelled 03/30/23 13:54 Pappenheimer Bodies Cancelled 03/30/23 13:54 Sickle Cells Cancelled 03/30/23 13:54 Target Cells Cancelled 03/30/23 13:54 Tear Drop Cells Cancelled 03/30/23 13:54 Ovalocytes Cancelled 03/30/23 13:54 Stomatocytes Cancelled 03/30/23 13:54 Aguirre-Belcourt Bodies Cancelled 03/30/23 13:54 Echinocytes Cancelled 03/30/23 13:54 Acanthocytes (Spur) Cancelled 03/30/23 13:54 Rouleaux Cancelled 03/30/23 13:54 RBC Agglutinates Cancelled 03/30/23 13:54 Schistocytes Cancelled 03/30/23 13:54 Sezary Cell Cancelled 03/30/23 13:54 Sodium 139 mmol/L (136-145) 03/30/23 13:54 Potassium 3.7 mmol/L (3.5-5.1) 03/30/23 13:54 Chloride 103 mmol/L (98-107) 03/30/23 13:54 Carbon Dioxide 28 mmol/L (21-32) 03/30/23 13:54 Anion Gap 8 (3-11) 03/30/23 13:54 BUN 10 mg/dl (6-23) 03/30/23 13:54 Creatinine 0.52 mg/dl (0.6-1.4) L 03/30/23 13:54 Est Cr Clr Drug Dosing Not Reportable 03/30/23 13:54 Est GFR ( Amer) 122.6 ml/min 03/30/23 13:54 Est GFR (Non-Af Amer) 105.8 ml/min 03/30/23 13:54 BUN/Creatinine Ratio 19.2 (10-20) 03/30/23 13:54 Glucose 109 mg/dl (70-99(Fasting)) H 03/30/23 13:54 Calcium 9.5 mg/dl (8.6-10.3) 03/30/23 13:54 Total Bilirubin 0.7 mg/dl (0.2-1.0) 03/30/23 13:54 AST 15 U/L (13-39) 03/30/23 13:54 ALT 12 U/L (7-52) 03/30/23 13:54 Alkaline Phosphatase 54 U/L (34-104) 03/30/23 13:54 Total Protein 7.0 gm/dl (6.0-8.3) 03/30/23 13:54 Albumin 4.2 gm/dl (3.4-5.0) 03/30/23 13:54 Globulin 2.8 gm/dl (2.5-4.0) 03/30/23 13:54 Albumin/Globulin Ratio 1.5 (0.9-2) 03/30/23 13:54 Urine Color Dark Yellow 03/30/23 19:54 Urine Appearance Clear (Clear) 03/30/23 19:54 Urine pH 7.0 (4.5-7.5) 03/30/23 19:54 Ur Specific [place] 1.016 (1.000-1.030) 03/30/23 19:54 Urine Protein Negative (Negative) 03/30/23 19:54 Urine Glucose (UA) Negative (Negative) 03/30/23 19:54 Urine Ketones Negative (Negative) 03/30/23 19:54 Urine Blood Negative (Negative) 03/30/23 19:54 Urine Nitrite Negative (Negative) 03/30/23 19:54 Urine Bilirubin Negative (Negative) 03/30/23 19:54 Urine Urobilinogen Negative (Negative) 03/30/23 19:54 Ur Leukocyte Esterase Negative (Negative) 03/30/23 19:54 SARS-CoV-2, RNA, NAAT NEGATIVE (NEGATIVE) 03/30/23 20:07 Blood Parasites ID Cancelled 03/30/23 13:54 Impressions Cervical Spine MRI 03/30/23 15:42 MR cervical spine wo con HISTORY: 72 years-old Male RUE weakness, b/l LE amb dysfunction, necback pain acute neck pain with right upper extremity weakness COMPARISON: None TECHNIQUE: Multiplanar multisequence MRI of the cervical spine was obtained without the use of IV contrast. FINDINGS: Motion degraded exam. No gross abnormality identified on the musical instrument mechanic localizer images. The imaged posterior fossa structures are unremarkable. Normal signal of the brainstem. 1.1 cm C6 vertebral body hemangioma. No acute fracture, subluxation, endplate erosion, significant marrow or soft tissue edema. No marrow replacing process. Degenerative pannus circumferentially surrounds the dens. This results in narrowing at the craniocervical junction with AP dimension measuring 6 mm. There is a 9 mm focus of increased T2/STIR signal within the central cervical spinal cord at this level. Otherwise normal appearance of the cervical and imaged upper thoracic spinal cord. C2-C3: Severe intervertebral disc space narrowing. Circumferential disc osteophyte complex with advanced facet arthrosis. The central canal is patent. Severe bilateral foraminal narrowing, left greater than right. C3-C4: Severe intervertebral disc space narrowing. Prominent spondylitic spurring with circumferential disc osteophyte complex and large central disc protrusion measuring 1.1 x 0.6 cm in transverse and AP dimensions. Advanced facet arthrosis. AP dimension of the thecal sac measures 5.5 mm. Moderate central canal stenosis with severe bilateral foraminal narrowing. C4-C5: Severe intervertebral disc space narrowing with circumferential disc osteophyte complex and moderate facet arthrosis. Mild central canal stenosis with AP dimension of the thecal sac measuring 8 mm. Severe bilateral foraminal narrowing. C5-C6: Severe intervertebral disc space narrowing with spondylitic spurring and small circumferential disc osteophyte complex. Moderate facet arthrosis. The central canal is patent. Moderate with severe left foraminal narrowing. C6-C7. Severe intervertebral disc space narrowing noted under partial bony fusion. Spondylitic spurring with moderate facet arthrosis. The central canal is patent. Moderate to severe right with severe left neural foraminal narrowing. C7-T1: Moderate to advanced facet arthrosis. The central canal and neuroforamen are generally patent. IMPRESSION: 1. No acute fracture, subluxation or significant bone marrow edema. 2. 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 3. Moderate central canal stenosis at C3-C4. 4. Severe multilevel neural foraminal narrowing. ACT 112: Negative or not required by law. The above report was generated using voice recognition software. It may contain grammatical, syntax or spelling errors. Electronically signed by: Camilo Renae M.D. 03/30/2023 8:59 PM Lumbar Spine MRI 03/30/23 15:42 MR lumbar spine wo con CLINICAL HISTORY: 72 years-old Male with RUE weakness, b/l LE amb dysfunction, necback pain. Chronic low back pain COMPARISON: None TECHNIQUE: Multiplanar, multi sequence MRI of the lumbar spine was performed without intravenous contrast. FINDINGS: Motion degraded exam. Tie Fastener localizer images demonstrate no gross extraspinal abnormality. Mild lumbar levoscoliosis. No acute fracture, subluxation or erosion identified. Mild to moderate marrow edema noted at L1, L4 and L5 8 mm anterolisthesis L5 on S1 with chronic bilateral L5 pars defects. Conus medullaris terminates at the L1 level. Normal signal within the imaged thoracic spinal cord. T12-L1: No central canal or neural foraminal stenosis. L1-L2: Mild to moderate vertebral disc space narrowing. Spondylitic spurring with small circumferential annular disc bulge. Ligamentum flavum thickening with severe facet arthrosis. Mild right neural foraminal narrowing. The central canal and left neural foramen are patent. L2-L3: Mild intervertebral disc space narrowing. Spondylotic spurring with right paracentral/right lateral recess disc osteophyte complex 1.2 cm transversely. There is resultant moderate narrowing of the right lateral recess. Severe facet arthrosis with trace right facet effusion. AP dimension of the thecal sac measures 8 mm. Mild to moderate central canal stenosis with mild left and [id number] right neural foraminal narrowing. L3-L4: Severe intervertebral disc space narrowing. Spondylitic spurring with small circumferential disc osteophyte complex. Ligamentum flavum thickening with advanced facet arthrosis. Mild central canal stenosis, AP dimension of the thecal sac measuring 9 mm. Moderate to severe left with mild/moderate right neural foraminal narrowing. L4-L5: Severe intervertebral disc space narrowing. Circumferential disc osteophyte complex. Ligamentum thickening with advanced facet arthrosis. Central canal is patent. There is at least mild narrowing of the lateral recesses. Severe bilateral foraminal narrowing. L5-S1: Grade 1 anterolisthesis. Moderate intervertebral disc space narrowing with spondylitic spurring and circumferential annular disc bulge with posterior disc space uncovering. Advanced facet arthrosis. Central canal is patent. Moderate right with severe left neural foraminal narrowing. IMPRESSION: 1. Motion degraded exam without acute fracture. 2. Likely degenerative marrow edema at L1, L4 and L5. 3. Chronic L5 pars defects with 8 mm anterolisthesis. 4. Mild to moderate central canal stenosis at L2-L3 with multilevel neural foraminal narrowing as above. ACT 112: Negative or not required by law. The above report was generated using voice recognition software. It may contain grammatical, syntax or spelling errors. Electronically signed by: Camilo Renae M.D. 03/30/2023 9:07 PM Code Status & VTE Plan Code Status Full code VTE Prophylaxis Plan VTE Prophylaxis will be ordered: Yes PG Care Time/CCT Total # of Minutes Spent Total Time Spent with Patient: Total time spent is greater than 50% in coordination of care (as documented) at patient's floor/unit and/or counseling patient: Coding Level of Care Code 98693 INT INP/OBS CARE 3/75MIN Diagnoses Cervical spinal stenosis M48.02 Lumbar spinal stenosis M48.061 Smokeless tobacco use Z72.0 Hypertension I10 GERD (gastroesophageal reflux disease) K21.9
[2023-03-31] MEDS: dexAMETHasone 6 MG in SYRINGE 0 ML IV SCH ×3 (05:01→21:03)
[2023-03-31 06:51] LABS: Basophils # (auto) 0.01 K/uL (0-0.2); Basophils % (auto) 0.2 %; Hematocrit (blood only) 44.5 % (42.0-52.0); Hemoglobin 15.7 g/dl (14.0-18.0); Immature Granulocytes # (auto) 0.01 K/uL (0.01-0.20); Immature Granulocytes % (auto) 0.2 %; Lymphocytes # (auto) 0.57 K/uL (1.2-3.4); Lymphocytes % (auto) 13.9 %; Mean Corpuscular Hgb Conc 35.3 g/dL (32.0-36.0); Mean Corpuscular Volume 87.8 fL (80.0-100.0); Mean Platelet Volume 10.7 fL (9.4-12.4); Monocytes # (auto) 0.08 K/uL (0.11-0.59); Neutrophils # (auto) 3.43 K/uL (1.40-6.50); Neutrophils % (auto) 83.7 %; Platelet Count 194 K/uL (130-400); RDW Coefficient of Variation 11.8 % (11.5-14.5); RDW Standard Deviation 37.7 fL (36.4-46.3); Red Blood Count 5.07 M/uL (4.70-6.10)
[2023-03-31 07:38] LABS: Albumin Level 3.9 gm/dl (3.4-5.0); Calcium 8.9 mg/dl (8.6-10.3); Magnesium 1.8 mg/dl (1.7-2.4); Potassium 3.9 mmol/L (3.5-5.1)
[2023-03-31 07:44] LABS: BUN Creatinine Ratio 19.4 (10-20); Creatinine Clr Calc Pharmacy 95.8 ml/min; Est GFR (African American) 114.1 ml/min; Est GFR (Non-African American) 98.4 ml/min; Phosphorus 3.9 mg/dl (2.5-4.9)
--- NOTE | 2023-03-31 08:11 | Hospitalist Progress Note ---
Date of Service March 31, 2023 Assessment & Plan (1) Cervical spinal stenosis: Plan: 72 M with past medical history of hypertension, GERD, and cervical and lumbar stenosis. Admitted for worsening neck and back pain, pending evaluation for orthopedic or neurosurgical operative management. Currently stable, with pain well tolerated on p.o. Tylenol. Cervical/lumbar spinal stenosis -History of progressively worsening weakness, decreased bilateral UE range of motion. -LE range of motion bilaterally has progressively worsened only recently. Now unable to transfer from seated position to walker, which was baseline as of January of this year. -Range of motion, ambulation have been severely limited since fall in January of this year. -No saddle anesthesia, bowel or bladder incontinence. -No acute fracture on CT of cervical or lumbar spine. Findings appear to show canal stenosis, foraminal narrowing, degenerative vertebral defects. * Admitted to [facility] with telemetry * Orthopedic surgery consulted. Appreciate recommendations. * Tylenol 1000 mg every 8 hours as needed for pain; [place] every 6 hours as needed for moderate pain, Dilaudid 0.25 mg IV every 3 hours as needed for severe pain. * Continue dexamethasone 6 mg every 8 hours Hypertension Chronic; managed at home on lisinopril 40 mg, amlodipine 5 mg, carvedilol 25 mg twice daily * Continue home regimen GERD -Chronic; managed at home on omeprazole 40 mg * P.o. Protonix 40 mg daily. Code: Full code Dispo: Med-Surg telemetry FEN/GI: Heart healthy DVT Prophylaxis: Heparin 5000 u q12h PT/OT: No Consults: Orthopedic surgery Case Management: No (2) Lumbar spinal stenosis: (3) Smokeless tobacco use: (4) Hypertension: (5) GERD (gastroesophageal reflux disease): Plan Cervical spine and lumbar spine stenosis- Cervical symptoms are especially prominent in C1-C2 distribution, but also extend throughout MRIs performed of cervical and lumbar spine Thoracic spine likely has similar structural issues, however, was not performed this evening due to significant discomfort, and may be imaged in the a.m. ED discussion with orthopedic spine surgery Dr. Castelan We will give dexamethasone 10 mg IV in the ED now, and then 6 mg IV every 8 hours Acetaminophen 650 mg by mouth every 6 hours as needed for mild pain or fever [place] 5/325 1 every 6 hours as needed for moderate pain Dilaudid 0.25 mg IV every 3 hours as needed for severe pain NSS + KCl 20 mEq at 80 mils per hour Consult orthopedic spine surgery Dr. Castelan Hypertension-hold aspirin Continue carvedilol 25 mg p.o. twice daily, amlodipine 5 mg p.o. daily, and lisinopril 40 mg p.o. daily. GERD- Change omeprazole to pantoprazole per formulary interchange Admission and Anticipated Discharge Date Admission Date: March 30, 2023 Supervising Physician Co-Signing Physician Notes I personally examined the patient and verified all elliott points of history and exam, discussed case, and agree with decision making with Dr Cheung Awaiting spine input. Vitals noted. No distress. Spinal stenosisawait spine surgery input. Otherwise as above. Subjective Patient seated upright at bedside on arrival this morning. is also present. He reports some neck pain overnight that was well controlled on p.o. Tylenol. He does report some girdle weakness, especially when attempting to transfer from seated position to walker. Denies any saddle numbness or paresthesias. Review of Systems Review of Systems: All systems reviewed & are unremarkable except as noted in HPI & below Physical Exam Physical Exam: General: No acute distress HEENT: PERRLA. Normal conjunctiva, anicteric sclera. Oropharynx normal. Respiratory: Normal respiratory effort, CTABL. Cardiovascular: RRR without murmurs, gallops, or rubs. No edema. GI: Soft abdomen with normal bowel sounds heard on auscultation. Nontender x4 quadrants Neuro: Alert and oriented x3. Results & Data Results & Data Vital Signs (Past 12 Hours) Vital Signs Temp Pulse Pulse Resp BP BP Pulse Ox 03/31/23 02:00 75 03/31/23 04:06 36.3 C L 66 16 163/84 H 95 03/31/23 01:30 36.7 C 69 20 159/97 H 95 03/31/23 01:30 36.7 C 69 20 159/97 H 95 03/31/23 01:30 03/31/23 01:00 58 L 130/74 92 03/31/23 00:39 60 03/31/23 00:30 60 16 129/84 90 03/31/23 00:00 71 18 131/79 91 03/30/23 23:30 75 20 136/93 92 03/30/23 23:00 74 18 154/96 H 94 03/30/23 22:30 74 19 165/106 H 93 03/30/23 22:01 82 21 169/111 H 93 03/30/23 21:30 90 18 179/110 H 03/30/23 21:01 85 22 150/98 H 92 03/30/23 21:00 84 18 95 03/30/23 20:30 83 15 126/103 H 95 03/30/23 20:31 83 Pulse Ox O2 Del Method O2 Del Method O2 Flow Rate 03/31/23 02:00 03/31/23 04:06 Room Air 03/31/23 01:30 Room Air 03/31/23 01:30 Room Air 03/31/23 01:30 95 Room Air 03/31/23 01:00 Room Air 03/31/23 00:39 03/31/23 00:30 Nasal Cannula 2 03/31/23 00:00 Room Air 03/30/23 23:30 Room Air 03/30/23 23:00 Room Air 03/30/23 22:30 03/30/23 22:01 03/30/23 21:30 03/30/23 21:01 Room Air 03/30/23 21:00 03/30/23 20:30 Room Air 03/30/23 20:31 Resident Activity Tracking Resident Involvement: Resident Care Provided Care Provided: Adult Hospital Medicine
[2023-03-31] MEDS: HEPARIN SOD 5,000 UNIT/0.5 ML VIAL SQ SCH ×2 (08:44→20:02)
[2023-03-31] MEDS: MULTIVITAMIN TAB PO SCH (08:45)
[2023-03-31] MEDS: lisinopril 40 MG TAB PO SCH (08:45)
[2023-03-31] MEDS: ASPIRIN 81 MG ECTAB PO SCH (08:45)
[2023-03-31] MEDS: carvediloL 25 MG TAB PO SCH ×2 (08:45→20:01)
[2023-03-31] MEDS: CHOLECALCIFEROL 5,000 UNITS 125 MCG TAB PO SCH (08:45)
[2023-03-31] MEDS: PANTOprazole 40 MG TAB PO SCH (08:46)
[2023-03-31] MEDS: amLODIPine BESYLATE 5 MG TAB PO SCH (08:46)
[2023-03-31] MEDS ORDERED: AZITHROMYCIN 500 MG in DEXTROSE 5% 250 ML IV ONE (14:30)
[2023-03-31] MEDS: ACETAMINOPHEN 500 MG TAB PO PRN (19:38)
[2023-04-01] MEDS: dexAMETHasone 6 MG in SYRINGE 0 ML IV SCH ×2 (05:30→15:09)
[2023-04-01 05:43] LABS: Hematocrit (blood only) 40.2 % (42.0-52.0); Hemoglobin 14.2 g/dl (14.0-18.0); Immature Granulocytes # (auto) 0.03 K/uL (0.01-0.20); Immature Granulocytes % (auto) 0.4 %; Lymphocytes # (auto) 0.85 K/uL (1.2-3.4); Lymphocytes % (auto) 10.2 %; Mean Corpuscular Hemoglobin 30.5 pg (25.0-34.0); Mean Corpuscular Hgb Conc 35.3 g/dL (32.0-36.0); Mean Corpuscular Volume 86.5 fL (80.0-100.0); Mean Platelet Volume 10.5 fL (9.4-12.4); Monocytes # (auto) 0.44 K/uL (0.11-0.59); Monocytes % (auto) 5.3 %; Neutrophils # (auto) 7.03 K/uL (1.40-6.50); Neutrophils % (auto) 84.1 %; Platelet Count 192 K/uL (130-400); RDW Coefficient of Variation 11.8 % (11.5-14.5); RDW Standard Deviation 37.4 fL (36.4-46.3); Red Blood Count 4.65 M/uL (4.70-6.10); White Blood Count 8.35 K/ul (4.8-10.8)
[2023-04-01 05:59] LABS: Albumin Level 3.6 gm/dl (3.4-5.0); BUN Creatinine Ratio 31.3 (10-20); Calcium 8.7 mg/dl (8.6-10.3); Creatinine Clr Calc Pharmacy 96.9 ml/min; Est GFR (African American) 110.5 ml/min; Est GFR (Non-African American) 95.3 ml/min; Magnesium 1.8 mg/dl (1.7-2.4); Phosphorus 3.7 mg/dl (2.5-4.9); Potassium 4.1 mmol/L (3.5-5.1)
--- NOTE | 2023-04-01 07:19 | Hospitalist Progress Note ---
Date of Service April 01, 2023 Assessment & Plan (1) Cervical spinal stenosis: Plan: 72yo male with past medical history of hypertension, GERD, and cervical and lumbar stenosis. Admitted to [facility] on 03/31 for worsening neck and back pain, as well as right > left UE weakness. Will be transferred to [facility] with neurosurgery/spine for C1-C2 suboccipital decompression. 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 Mild stenotic findings on lumbar MRI as well. - Ortho on board - recommends transfer to tertiary facility for suboccipital decompression at C1-C2 - Continue dexamethasone 6 mg every 8 hours - has provided minimal improvement in perineal numbness thus far - Tylenol 1000 mg every 8 hours as needed for pain; [place] every 6 hours as needed for moderate pain, Dilaudid 0.25 mg IV every 3 hours as needed for severe pain Hypertension Chronic; managed at home on lisinopril 40 mg, amlodipine 5 mg, carvedilol 25 mg twice daily * Continue home regimen GERD -Chronic; managed at home on omeprazole 40 mg * P.o. Protonix 40 mg daily. Code: Full code Dispo: Med-Surg telemetry FEN/GI: Heart healthy DVT Prophylaxis: Heparin 5000 u q12h Consults: Orthopedic surgery (2) Lumbar spinal stenosis: (3) Smokeless tobacco use: (4) Hypertension: (5) GERD (gastroesophageal reflux disease): Plan Cervical spine and lumbar spine stenosis- Cervical symptoms are especially prominent in C1-C2 distribution, but also extend throughout MRIs performed of cervical and lumbar spine Thoracic spine likely has similar structural issues, however, was not performed this evening due to significant discomfort, and may be imaged in the a.m. ED discussion with orthopedic spine surgery Dr. Castelan We will give dexamethasone 10 mg IV in the ED now, and then 6 mg IV every 8 hours Acetaminophen 650 mg by mouth every 6 hours as needed for mild pain or fever [place] 5/325 1 every 6 hours as needed for moderate pain Dilaudid 0.25 mg IV every 3 hours as needed for severe pain NSS + KCl 20 mEq at 80 mils per hour Consult orthopedic spine surgery Dr. Castelan Hypertension-hold aspirin Continue carvedilol 25 mg p.o. twice daily, amlodipine 5 mg p.o. daily, and lisinopril 40 mg p.o. daily. GERD- Change omeprazole to pantoprazole per formulary interchange Admission and Anticipated Discharge Date Admission Date: March 30, 2023 Subjective Reports that perineal numbness has resolved since starting on IV steroids. Still with persistent significant right > left UE weakness and numbness, as well as neck pain which is somewhat improved with IV steroids as long as he remains seated. Review of Systems Review of Systems: All systems reviewed & are unremarkable except as noted in HPI & below Physical Exam Physical Exam: General: A&Ox3. NAD. Cooperative. HEENT: Atraumatic, normocephalic. Pulm: CTAB A&P. -wheezes, -rales, -rhonchi. Symmetrical chest rise. No increase work of breathing. No respiratory distress. Cardiac: RRR, -mrg. Radial pulses intact and symmetrical. No LE edema. Abdominal: soft, non-tender, non-distended, BS x 4 Neuro: decreased sensation along upper-mid cervical distribution, R >L. 3-4/5 strength in right UE, 4/5 strength in left UE Skin: warm, dry, no rash Results & Data Results & Data Vital Signs (Past 12 Hours) Vital Signs Temp Pulse Pulse Resp BP Pulse Ox Pulse Ox 04/01/23 01:39 91 04/01/23 03:37 36.5 C 73 20 130/72 91 03/31/23 22:00 67 03/31/23 23:34 36.6 C 65 22 138/78 93 03/31/23 19:41 36.7 C 75 22 165/91 H 93 O2 Del Method O2 Del Method 04/01/23 01:39 Room Air 04/01/23 03:37 Room Air 03/31/23 22:00 03/31/23 23:34 Room Air 03/31/23 19:41 Room Air
[2023-04-01] MEDS: carvediloL 25 MG TAB PO SCH (08:40)
[2023-04-01] MEDS: HEPARIN SOD 5,000 UNIT/0.5 ML VIAL SQ SCH (08:40)
[2023-04-01] MEDS: CHOLECALCIFEROL 5,000 UNITS 125 MCG TAB PO SCH (08:41)
[2023-04-01] MEDS: MULTIVITAMIN TAB PO SCH (08:41)
[2023-04-01] MEDS: PANTOprazole 40 MG TAB PO SCH (08:41)
[2023-04-01] MEDS: ASPIRIN 81 MG ECTAB PO SCH (08:42)
[2023-04-01] MEDS: lisinopril 40 MG TAB PO SCH (08:42)
[2023-04-01] MEDS: amLODIPine BESYLATE 5 MG TAB PO SCH (08:42)
[2023-04-01] MEDS: ACETAMINOPHEN 500 MG TAB PO PRN (09:41)
--- NOTE | 2023-04-01 09:46 | Orthopedic Consultation ---
Date of Consultation April 01, 2023 Assessment & Plan (1) Myelopathy concurrent with and due to spinal stenosis of cervical region: I have seen and examined the patient. I discussed the case with Dr. Castelan and reviewed the films as well. The patient is likely to need a suboccipital decompression at C1-2 due to the pressure on the spinal cord. He is grossly myelopathic at this point and is very unsteady on his feet. Unfortunately we do not perform that type of procedure need to be referred and/or transferred to another facility with a neurosurgeon that does this type of decompression. While he does have issues in the lumbar spine cervical spine takes precedence given the degree of compression that is present. Unfortunately have nothing further to offer the patient from our perspective. History of Present Illness Attending Physician: Omar Dixon DO History of Present Illness Patient was seen bedside in room 459. He was admitted through the emergency department due to increasing neck pain and difficulties with ambulation and gait. He has been having issues with his back since this past fall. He has had multiple falls this past week. He seems to lose his balance and tripped and his legs give out on him. He has been engaged in physical therapy. He feels better today but still is having difficulties with his upper extremities he cannot get his arms above his head. In general his hands feel weak and he has loss of coordination. He denies any other numbness, tingling, or paresthesias. Allergies Allergy/AdvReac Type Severity Reaction Status Date / Time No Known Allergies Allergy Unverified 03/30/23 17:31 Home Medications Medication Instructions Recorded Confirmed Type amlodipine 5 mg tablet 5 mg PO DAILY 03/30/23 03/30/23 History aspirin 81 mg tablet,delayed 81 mg PO DAILY 03/30/23 03/30/23 History release carvedilol 25 mg tablet 25 mg PO BID 03/30/23 03/30/23 History cholecalciferol (vitamin D3) 125 125 mcg PO DAILY 03/30/23 03/30/23 History mcg (5,000 unit) tablet (Vitamin D3) lisinopril 20 mg tablet 40 mg PO DAILY 03/30/23 03/30/23 History multivitamin 1 tab PO DAILY 03/30/23 03/30/23 History omeprazole 40 mg capsule,delayed 40 mg PO DAILY 03/30/23 03/30/23 History release Patient History Medical History GERD (gastroesophageal reflux disease) Hypertension Smokeless tobacco use Surgical History No pertinent past surgical history Social History Smoking Status: Current some day smoker Tobacco Type: Smokeless Tobacco (Dip or Chew) Do You Dip or Chew Tobacco: Yes; Hx Alcohol Use: Yes Hx Substance Use: No Preferred Language: Brazilian Communication Ability: Effective 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 His upper extremity motor exam reveals atrophy in the first dorsal interosseous and the hypothenar eminence. He has impingement in the right shoulder when trying to adduct his arm. He has positive Amanda signs bilaterally. He has clonus in both of his lower extremities. There is weakness in his deltoid biceps with a strength of 4 out of 5 bilaterally. Respiratory Care Assistant strength is diminished on the right near full on the left. He is hyperreflexive throughout. His gait was not observed. Cardiovascular exam reveals no gross abnormalities. Skin is clean dry and intact. Visual solis are grossly intact. No nystagmus is noted. Results & Data Vital Signs (Past 12 Hours) Vital Signs Temp Pulse Pulse Resp BP Pulse Ox Pulse Ox 04/01/23 08:17 36.8 C 77 20 153/88 H 97 04/01/23 01:39 91 04/01/23 03:37 36.5 C 73 20 130/72 91 03/31/23 22:00 67 03/31/23 23:34 36.6 C 65 22 138/78 93 O2 Del Method O2 Del Method 04/01/23 08:17 Room Air 04/01/23 01:39 Room Air 04/01/23 03:37 Room Air 03/31/23 22:00 03/31/23 23:34 Room Air Diagnostic Findings MRI of the cervical spine is available for review. This reveals multilevel spondylosis. There is severe spinal cord compression at C1-2 with gliosis in the cord. There is also severe compression at C3 4.
--- NOTE | 2023-04-01 13:39 | Discharge Summary ---
Date of Service April 01, 2023 Admission HPI Per Admitting Provider The patient is a 72-year-old male with a past medical history including hypertension, vitamin D deficiency and GERD. 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 He has had issues over the years with neck pain and lower back pain, and in the more recent years has developed progressive early worsening weakness and decreased range of motion of bilateral upper extremities, and progressive weakness of bilateral lower extremities. He also notes decreased sensation pointing to his perineal area, but has not had loss of bowel or bladder control. His family reports that a few months ago he fell backwards and injured his head, and since that time his symptoms of weakness seem to have worsened. Admission Exam Per Admitting Provider The patient is awake, alert and oriented 3, well developed and well nourished, normocephalic and atraumatic, lying in bed and in no acute distress. HEENT--PERRL, EOMI, mucous membranes and oropharynx dry. Neck--supple. No JVD. No bruits. Thyroid normal, trachea midline, no adenopathy. Heart--normal S1 and S2. No murmurs, rubs or gallops. Lungs--clear bilaterally, no respiratory distress, no accessory muscle use. Abdomen--normal bowel sounds and soft. Nontender. Nondistended, no hernias or masses, no organomegaly. Extremities--no cyanosis or clubbing. No edema. There are good distal pulses b/l. Dermatologic--normal skin turgor, normal color, no abnormal lymph nodes, no rash. Neurologic--cranial nerves II through XII grossly intact. Rheumatologic--decreased range of motion and generalized weakness of all extremities Psychiatric--normal affect. Principal Diagnosis Myelopathy due to Cervical Spinal Stenosis Discharge Exam General: A&Ox3. NAD. Cooperative. HEENT: Atraumatic, normocephalic. Pulm: CTAB A&P. -wheezes, -rales, -rhonchi. Symmetrical chest rise. No increase work of breathing. No respiratory distress. Cardiac: RRR, -mrg. Radial pulses intact and symmetrical. Abdominal: soft, non-tender, non-distended, BS x 4 Neuro: sitting in chair, significant UE (3-4/5) > LE weakness (4+/5) as well as decreased sensation bilateral UEs. Discharge Data Allergies Allergy/AdvReac Type Severity Reaction Status Date / Time No Known Allergies Allergy Unverified 03/30/23 17:31 Consultations 03/30/23 21:59 ED Decision to Admit Stat 03/31/23 16:01 Consult Orthopedic Surgery Routine Ordered Studies 03/30/23 15:42 MR cervical spine wo con Stat MR lumbar spine wo con Stat Hospital Course (1) Myelopathy concurrent with and due to spinal stenosis of cervical region: Plan 72yo male with past medical history of hypertension, GERD, and cervical and lumbar stenosis. Admitted to [facility] on 03/31 for worsening neck and back pain, as well as right > left UE weakness. Will be transferred to [facility] with neurosurgery/spine for C1-C2 suboccipital decompression. 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 Mild stenotic findings on lumbar MRI as well. - Ortho on board - recommends transfer to tertiary facility for suboccipital decompression at C1-C2 - Continue dexamethasone 6 mg every 8 hours - has provided minimal improvement in perineal numbness thus far - Tylenol 1000 mg every 8 hours as needed for pain; [place] every 6 hours as needed for moderate pain, Dilaudid 0.25 mg IV every 3 hours as needed for severe pain Hypertension Chronic; managed at home on lisinopril 40 mg, amlodipine 5 mg, carvedilol 25 mg twice daily * Continue home regimen GERD -Chronic; managed at home on omeprazole 40 mg * P.o. Protonix 40 mg daily. 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 Admitted to [facility] on 03/31 for worsening neck and back pain, as well as right > left UE weakness. Will be transferred to [facility] with neurosurgery/spine for C1-C2 suboccipital decompression. 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 Mild stenotic findings on lumbar MRI as well. - Ortho on board - recommends transfer to tertiary facility for suboccipital decompression at C1-C2 - Continue dexamethasone 6 mg every 8 hours - has provided minimal improvement in perineal numbness thus far - Tylenol 1000 mg every 8 hours as needed for pain; [place] every 6 hours as needed for moderate pain, Dilaudid 0.25 mg IV every 3 hours as needed for severe pain Hypertension Chronic; managed at home on lisinopril 40 mg, amlodipine 5 mg, carvedilol 25 mg twice daily * Continue home regimen GERD -Chronic; managed at home on omeprazole 40 mg * P.o. Protonix 40 mg daily. Code: Full code Dispo: Med-Surg telemetry FEN/GI: Heart healthy DVT Prophylaxis: Heparin 5000 u q12h Consults: Orthopedic surgery Pending Studies at Discharge: No Stand-Alone Forms: My [facility] [employer] Skilled Items Patient informed of condition?: Yes DNR: No Discharge Level of Care: Other Communicable Disease: No Discharge Prognosis: Deteriorating Lines: Peripheral IV Urinary Catheter: No Medications and DC Order Prescriptions: Continued multivitamin Tablet 1 tab PO DAILY carvedilol 25 mg tablet 25 mg PO BID lisinopril 20 mg tablet 40 mg PO DAILY amlodipine 5 mg tablet 5 mg PO DAILY omeprazole 40 mg capsule,delayed release(DR/EC) 40 mg PO DAILY aspirin 81 mg Tablet,Delayed Release (Dr/Ec) 81 mg PO DAILY cholecalciferol (vitamin D3) [Vitamin D3] 125 mcg (5,000 unit) Tablet 125 mcg PO DAILY Discharge Orders: Discharge Order (Routine); Ordered 04/01/23 Ordered By: Darek Harrell Admission Data Admit Date/Time: 03/30/23 22:34 Attending Provider: Omar Dixon Admit Provider: Junaid Carter Primary Care Provider: Harlan Castelan Other Providers: Junaid Carter ; Harlan Castelan Other Interventions: Discharge Summary Assessment (RN) Last Done: 04/01/23 16:08 Supervising Physician Co-Signing Physician Notes I personally examined the patient and verified all elliott points of history and exam, discussed case, and agree with decision making with Dr Harrell Feeling about the same. Accepted at [place]. Transferred for more definitive care. Vitals noted, in general he is awake and alert pleasant no distress. HEENT normocephalic atraumatic mucous membranes moist. Breathing unlabored no accessory muscle use good effort. Skin shows no rashes no pallor or icterus. Spinal stenosismultifocalappreciate orthospine inputprimary problem would be decompressing his upper cervical spinerequiring transfer to tertiary care. He has been accepted at [place] in transfer today. Discussed the likely long path towards rehab and encouraged him to stay patient and work as hard as he can during that time. Resident Activity Tracking Resident Involvement: Resident Care Provided Care Provided: Adult Hospital Medicine
--- NOTE | 2023-04-01 17:55 | Billing Data ---
Date of Service April 01, 2023 Coding Level of Care Code 50830 IN/OBS DISCH 30 MIN/LESS
== END 2023-04-01 16:31 | disposition short-term general hospital (02) | DRG 552 ==
LOC: ED 13:27 → 4W 22:34 → INTOOBSV 22:34 → SUATTDRO 22:34 → 4W 03-31 01:16